=== PATIENT | male | born 1945 | race Caucasian/White ===

== ENCOUNTER 2019-04-07 09:55 | Inpatient (IN) | payer OTHER ==
[2019-04-07 10:18] VITALS: BMI 22.8
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
[2019-04-07] MEDS ORDERED: BISMUTH SUBSALICYLATE 524 MG/30 ML UD PO PRN (11:18)
[2019-04-07] MEDS ORDERED: ACETAMINOPHEN 325 MG TABLET (FP) PO PRN (11:18)
[2019-04-07] MEDS ORDERED: NICOTINE POLACRILEX 2 MG GUM BUC PRN (11:18)
[2019-04-07] MEDS ORDERED: MAGNESIUM HYDROX 2400MG/30ML ORAL SUSPENSION 30 ML CUP PO PRN (11:18)
[2019-04-07] MEDS ORDERED: cloNIDine HCL 0.1 MG TABLET PO PRN (11:18)
[2019-04-07] MEDS ORDERED: MAGNESIUM CITRATE 300 ML BOTTLE PO PRN (11:18)
[2019-04-07] MEDS ORDERED: MENTHOL/PHENOL 1 EACH UD MM PRN (11:18)
[2019-04-07] MEDS ORDERED: MAG HYDROX/AL HYDROX/SIMETH 30 ML UNIT-DOSE CUP PO PRN (11:18)
[2019-04-07] MEDS ORDERED: METHADONE HCL 10 MG TABLET (FOR DETOX USE ONLY) PO ONE (12:00)
[2019-04-07] MEDS: NICOTINE 21 MG/24 HOURS TOPICAL PATCH TD SCH (13:21)
[2019-04-07 19:47] LABS: URINE APPEARANCE CLEAR; URINE BILIRUBIN 1+ (NEGATIVE); URINE COLOR DK YELLOW; URINE GLUCOSE (UA) NEGATIVE (NEGATIVE); URINE KETONE TRACE (NEGATIVE); URINE LEUK ESTERASE NEGATIVE (NEGATIVE); URINE NITRITE NEGATIVE (NEGATIVE); URINE PROTEIN TRACE (NEGATIVE)
[2019-04-07] MEDS: MELATONIN 5 MG TABLETS PO PRN (22:39)
[2019-04-07] MEDS: THIAMINE HCL 100 MG TABLET (FP) PO SCH (22:39)
[2019-04-08] MEDS: clonazePAM 0.5 MG TABLET PO PRN ×3 (00:49→22:31)
[2019-04-08] MEDS ORDERED: METHADONE HCL 10 MG TABLET (FOR DETOX USE ONLY) ONE (09:49)
[2019-04-08] MEDS ORDERED: METHADONE HCL 5 MG TABLET (FOR DETOX USE ONLY) ONE (09:50)
[2019-04-08] MEDS ORDERED: METHADONE (DETOX) 20 MG, METHADONE (DETOX) 5 MG PO ONE (10:00)
[2019-04-08] MEDS: PRENATAL VITAMINS W/ FOLIC ACID TABLET (FP) PO SCH (10:25)
[2019-04-08] MEDS: NICOTINE 21 MG/24 HOURS TOPICAL PATCH TD SCH (10:25)
[2019-04-08 10:49] LABS: HEMATOCRIT 43.6 % (35.4-49); HEMOGLOBIN 14.3 GM/dL (11.7-16.9); MEAN PLT VOLUME 9.5 fl (7.5-11.1); WHITE BLOOD COUNT 5.8 K/mm3 (4.0-10.0)
[2019-04-08 10:54] LABS: ALBUMIN 3.3 g/dl (3.4-5.0); BILIRUBIN,TOTAL 0.9 mg/dL (0.2-1); BLOOD UREA NITROGEN 26.2 mg/dL (7-18); CALCIUM 8.6 mg/dL (8.5-10.1); CREATININE 1.2 mg/dL (0.55-1.3); POTASSIUM 4.1 mmol/L (3.5-5.1); TOT PROT 7.1 g/dl (6.4-8.2)
[2019-04-08 11:17] LABS: MCHC 32.8 g/dl (32.0-35.9); MEAN CELL VOLUME 94.6 fl (80-96); RBC 4.61 M/mm3 (4.00-5.60); RDW 13.5 % (11.9-15.9)
[2019-04-08 11:44] LABS: PLATELET COUNT 148 K/MM3 (134-434)
[2019-04-08] MEDS: AMMONIUM LACTATE 12% LOTION 225 GM BOTTLE TP SCH ×2 (12:11→22:28)
--- NOTE | 2019-04-08 13:59 | EKG ---
Test Reason : Blood Pressure : / mmHG Vent. Rate : 075 BPM Atrial Rate : 075 BPM P-R Int : 160 ms QRS Dur : 072 ms QT Int : 398 ms P-R-T Axes : 070 -07 024 degrees QTc Int : 444 ms NORMAL SINUS RHYTHM NORMAL ECG NO PREVIOUS ECGS AVAILABLE Confirmed by MD HARRISON, JOSHUA ([id number]) on 04/08/2019 1:58:55 PM Referred By: SONG FINCH Confirmed By:JOSHUA TERRY MD
--- NOTE | 2019-04-08 15:28 | PN ---
BHS COWS - Scale Resting Pulse: 1= [place] 81-100 Sweatin= No chills or Flushing Restless Observation: 1= Difficult to Sit Still Pupil Size: 0= Normal to Room Light Bone or Joint Aches: 2= Severe Diffuse Aches Runny Nose/ Eye Tearin= None GI Upset > 30mins: 0= None Tremor Observation of Outstretched Hands: 2= Slight Tremor Visible Yawning Observation: 1= 1-2x During Session Anxiety or Irritability: 2=Irritable/Anxious Goose Flesh Skin: 3=Piloerection COWS Score: 12 BHS Progress Note (SOAP) Subjective: Anxious, Tremors, Body Aches. Objective: PATIENT A & O X 3, OBSERVED AMBULATING ON UNIT UNASSISTED. IN NO ACUTE DISTRESS. 04/08/19 15:27 Vital Signs Temperature 97.2 F L 04/08/19 13:18 Pulse Rate 86 04/08/19 13:18 Respiratory Rate 17 04/08/19 13:18 Blood Pressure 104/66 04/08/19 13:18 O2 Sat by Pulse Oximetry (%) Laboratory Tests 04/07/19 04/08/19 04/08/19 12:56 07:42 07:42 WBC 5.8 RBC 4.61 Hgb 14.3 Hct 43.6 MCV 94.6 MCH 31.0 MCHC 32.8 RDW 13.5 Plt Count 148 MPV 9.5 Sodium 141 Potassium 4.1 Chloride 109 H Carbon Dioxide 28 Anion Gap 5 L BUN 26.2 H Creatinine 1.2 Est GFR (CKD-EPI)AfAm 70.09 Est GFR (CKD-EPI)NonAf 60.47 Random Glucose 82 Calcium 8.6 Total Bilirubin 0.9 AST 22 ALT 23 Alkaline Phosphatase 82 Total Protein 7.1 Albumin 3.3 L Urine Color Dk yellow Urine Appearance Clear Urine pH 5.0 Ur Specific [place] 1.033 Urine Protein Trace Urine Glucose (UA) Negative Urine Ketones Trace H Urine Blood Negative Urine Nitrite Negative Urine Bilirubin 1+ H Urine Urobilinogen 1.0 Ur Leukocyte Esterase Negative RPR Titer 04/08/19 07:42 WBC RBC Hgb Hct MCV MCH MCHC RDW Plt Count MPV Sodium Potassium Chloride Carbon Dioxide Anion Gap BUN Creatinine Est GFR (CKD-EPI)AfAm Est GFR (CKD-EPI)NonAf Random Glucose Calcium Total Bilirubin AST ALT Alkaline Phosphatase Total Protein Albumin Urine Color Urine Appearance Urine pH Ur Specific [place] Urine Protein Urine Glucose (UA) Urine Ketones Urine Blood Urine Nitrite Urine Bilirubin Urine Urobilinogen Ur Leukocyte Esterase RPR Titer Nonreactive LABS NOTED. RESULTS OF TB /QFT TEST PENDING. 04/08/19 15:28 Assessment: 04/08/19 15:28 WITHDRAWAL SYMPTOMS. Plan: CONTINUE DETOX. INCREASE DAILY PO WATER INTAKE.
[2019-04-08] MEDS: MELATONIN 5 MG TABLETS PO PRN (22:28)
[2019-04-08] MEDS: THIAMINE HCL 100 MG TABLET (FP) PO SCH (22:28)
[2019-04-09] MEDS: clonazePAM 0.5 MG TABLET PO PRN ×2 (06:20→22:31)
[2019-04-09] MEDS: IBUPROFEN 400 MG TABLET (FP) PO PRN (06:41)
[2019-04-09] MEDS ORDERED: METHADONE HCL 10 MG TABLET (FOR DETOX USE ONLY) PO ONE (10:00)
[2019-04-09] MEDS: METHOCARBAMOL 500 MG TABLET PO PRN (10:21)
[2019-04-09] MEDS: PRENATAL VITAMINS W/ FOLIC ACID TABLET (FP) PO SCH (10:21)
[2019-04-09] MEDS: AMMONIUM LACTATE 12% LOTION 225 GM BOTTLE TP SCH ×2 (10:22→22:31)
[2019-04-09] MEDS: NICOTINE 21 MG/24 HOURS TOPICAL PATCH TD SCH (10:22)
--- NOTE | 2019-04-09 14:18 | PN ---
BHS COWS - Scale Resting Pulse: 1= [place] 81-100 Sweatin= No chills or Flushing Restless Observation: 1= Difficult to Sit Still Pupil Size: 0= Normal to Room Light Bone or Joint Aches: 4=Acute Joint/Muscle Pain Runny Nose/ Eye Tearin= None GI Upset > 30mins: 0= None Tremor Observation of Outstretched Hands: 0= None Yawning Observation: 1= 1-2x During Session Anxiety or Irritability: 2=Irritable/Anxious Goose Flesh Skin: 0=Smooth Skin COWS Score: 9 BHS Progress Note (SOAP) Subjective: Interrupted Sleep, Anxious, Body Aches. Objective: PATIENT A & O X 3, OBSERVED AMBULATING ON UNIT UNASSISTED. IN NO ACUTE DISTRESS. 04/09/19 14:17 Vital Signs Temperature 98.3 F 04/09/19 09:29 Pulse Rate 88 04/09/19 09:29 Respiratory Rate 18 04/09/19 09:29 Blood Pressure 118/73 04/09/19 09:29 O2 Sat by Pulse Oximetry (%) Laboratory Tests 04/07/19 04/08/19 04/08/19 12:56 07:42 07:42 WBC 5.8 RBC 4.61 Hgb 14.3 Hct 43.6 MCV 94.6 MCH 31.0 MCHC 32.8 RDW 13.5 Plt Count 148 MPV 9.5 Sodium 141 Potassium 4.1 Chloride 109 H Carbon Dioxide 28 Anion Gap 5 L BUN 26.2 H Creatinine 1.2 Est GFR (CKD-EPI)AfAm 70.09 Est GFR (CKD-EPI)NonAf 60.47 Random Glucose 82 Calcium 8.6 Total Bilirubin 0.9 AST 22 ALT 23 Alkaline Phosphatase 82 Total Protein 7.1 Albumin 3.3 L Urine Color Dk yellow Urine Appearance Clear Urine pH 5.0 Ur Specific [place] 1.033 Urine Protein Trace Urine Glucose (UA) Negative Urine Ketones Trace H Urine Blood Negative Urine Nitrite Negative Urine Bilirubin 1+ H Urine Urobilinogen 1.0 Ur Leukocyte Esterase Negative RPR Titer 04/08/19 07:42 WBC RBC Hgb Hct MCV MCH MCHC RDW Plt Count MPV Sodium Potassium Chloride Carbon Dioxide Anion Gap BUN Creatinine Est GFR (CKD-EPI)AfAm Est GFR (CKD-EPI)NonAf Random Glucose Calcium Total Bilirubin AST ALT Alkaline Phosphatase Total Protein Albumin Urine Color Urine Appearance Urine pH Ur Specific [place] Urine Protein Urine Glucose (UA) Urine Ketones Urine Blood Urine Nitrite Urine Bilirubin Urine Urobilinogen Ur Leukocyte Esterase RPR Titer Nonreactive LABS NOTED. RESULTS OF TB /QFT TEST PENDING. 04/09/19 14:18 Assessment: 04/09/19 14:17 WITHDRAWAL SYMPTOMS. Plan: CONTINUE DETOX. INCREASE DAILY PO WATER INTAKE.
[2019-04-09] MEDS: LIDOCAINE 5% TOPICAL PATCH TP SCH (15:14)
[2019-04-09] MEDS: THIAMINE HCL 100 MG TABLET (FP) PO SCH (22:30)
[2019-04-09] MEDS: LIDOCAINE PATCH REMOVAL MC SCH (22:30)
[2019-04-09] MEDS: MELATONIN 5 MG TABLETS PO PRN (22:31)
[2019-04-10] MEDS ORDERED: METHADONE HCL 5 MG TABLET (FOR DETOX USE ONLY) ONE (08:54)
[2019-04-10] MEDS ORDERED: METHADONE HCL 10 MG TABLET (FOR DETOX USE ONLY) ONE (08:54)
[2019-04-10] MEDS: PRENATAL VITAMINS W/ FOLIC ACID TABLET (FP) PO SCH (09:41)
[2019-04-10] MEDS: AMMONIUM LACTATE 12% LOTION 225 GM BOTTLE TP SCH ×2 (09:41→22:27)
[2019-04-10] MEDS: NICOTINE 21 MG/24 HOURS TOPICAL PATCH TD SCH (09:41)
[2019-04-10] MEDS: LIDOCAINE 5% TOPICAL PATCH TP SCH (09:42)
[2019-04-10] MEDS: METHOCARBAMOL 500 MG TABLET PO PRN (09:45)
[2019-04-10] MEDS ORDERED: METHADONE (DETOX) 10 MG, METHADONE (DETOX) 5 MG PO ONE (10:00)
--- NOTE | 2019-04-10 12:17 | PN ---
BHS COWS - Scale Resting Pulse: 1= [place] 81-100 Sweatin= No chills or Flushing Restless Observation: 1= Difficult to Sit Still Pupil Size: 1= Pupils >than Normal Bone or Joint Aches: 1= Mild Discomfort Runny Nose/ Eye Tearin= Nasal Congestion GI Upset > 30mins: 1= Stomach Cramp Tremor Observation of Outstretched Hands: 1= Tremor [place], Not Seen Yawning Observation: 0= None Anxiety or Irritability: 1=Feels Anxious/Irritable Goose Flesh Skin: 0=Smooth Skin COWS Score: 8 BHS Progress Note (SOAP) Subjective: alert,irritable,anxious,interrupted sleep,aching pain Objective: 04/10/19 12:16 Vital Signs Temperature 97.5 F L 04/10/19 09:35 Pulse Rate 84 04/10/19 09:35 Respiratory Rate 18 04/10/19 09:35 Blood Pressure 126/79 04/10/19 09:35 O2 Sat by Pulse Oximetry (%) Assessment: 04/10/19 12:16 withdrawal symptom Plan: continue detox,methadone regimen
[2019-04-10] MEDS: THIAMINE HCL 100 MG TABLET (FP) PO SCH (21:13)
[2019-04-10] MEDS: clonazePAM 0.5 MG TABLET PO PRN (21:14)
[2019-04-10] MEDS: IBUPROFEN 400 MG TABLET (FP) PO PRN (21:14)
[2019-04-10] MEDS: MELATONIN 5 MG TABLETS PO PRN (21:14)
[2019-04-10] MEDS: LIDOCAINE PATCH REMOVAL MC SCH (22:28)
[2019-04-11] MEDS ORDERED: METHADONE HCL 10 MG TABLET (FOR DETOX USE ONLY) PO ONE (10:00)
[2019-04-11] MEDS: LIDOCAINE 5% TOPICAL PATCH TP SCH (10:06)
[2019-04-11] MEDS: AMMONIUM LACTATE 12% LOTION 225 GM BOTTLE TP SCH ×2 (10:06→22:05)
[2019-04-11] MEDS: NICOTINE 21 MG/24 HOURS TOPICAL PATCH TD SCH (10:06)
[2019-04-11] MEDS: PRENATAL VITAMINS W/ FOLIC ACID TABLET (FP) PO SCH (10:07)
--- NOTE | 2019-04-11 10:59 | PN ---
BHS COWS - Scale Resting Pulse: 1= [place] 81-100 Sweatin= Chills/Flushing Restless Observation: 0= Sits Still Pupil Size: 0= Normal to Room Light Bone or Joint Aches: 1= Mild Discomfort Runny Nose/ Eye Tearin= None GI Upset > 30mins: 0= None Tremor Observation of Outstretched Hands: 0= None Yawning Observation: 0= None Anxiety or Irritability: 0= None Goose Flesh Skin: 0=Smooth Skin COWS Score: 3 BHS Progress Note (SOAP) Subjective: feeling better little anxiety Objective: 04/11/19 10:58 Vital Signs Temperature 97.5 F L 04/11/19 09:28 Pulse Rate 83 04/11/19 09:28 Respiratory Rate 18 04/11/19 09:28 Blood Pressure 124/78 04/11/19 09:28 O2 Sat by Pulse Oximetry (%) [id number] ambulating no acute distress Assessment: 04/11/19 10:58 mild withdrawal sx Plan: continue detox increase fluids d/c in am
[2019-04-11] MEDS: LIDOCAINE PATCH REMOVAL MC SCH (22:05)
[2019-04-11] MEDS: THIAMINE HCL 100 MG TABLET (FP) PO SCH (22:06)
[2019-04-11] MEDS: METHOCARBAMOL 500 MG TABLET PO PRN (22:07)
[2019-04-12] MEDS: MELATONIN 5 MG TABLETS PO PRN (00:49)
[2019-04-12] MEDS: clonazePAM 0.5 MG TABLET PO PRN (03:35)
[2019-04-12] MEDS ORDERED: METHADONE HCL 5 MG TABLET (FOR DETOX USE ONLY) PO ONE (06:00)
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
[2019-04-12] MEDS: AMMONIUM LACTATE 12% LOTION 225 GM BOTTLE TP SCH (12:50)
[2019-04-12] MEDS: LIDOCAINE 5% TOPICAL PATCH TP SCH (12:50)
[2019-04-12] MEDS: PRENATAL VITAMINS W/ FOLIC ACID TABLET (FP) PO SCH (12:50)
[2019-04-12] MEDS: NICOTINE 21 MG/24 HOURS TOPICAL PATCH TD SCH (12:50)
[2019-04-12 13:45] VITALS: BP 113/70; PULSE 76; TEMP 97.7
== END 2019-04-12 14:16 | disposition home or self-care (01) | DRG 897 ==
LOC: YASAS 09:55 → Y6N 11:44
PROVIDERS: ADMIT Surgery; ATTEND Surgery
PROC: HZ2ZZZZ Detoxification Services for Substance Abuse Treatment (ICD-10-PCS; principal; 2019-04-07)
DX: F11.23 Opioid dependence with withdrawal (principal); F17.290 Nicotine dependence, other tobacco product, uncomplicated; M51.36 Other intervertebral disc degeneration, lumbar region; N40.1 Benign prostatic hyperplasia with lower urinary tract symptoms; R35.1 Nocturia; M79.5 Residual foreign body in soft tissue; Z85.528 Personal history of other malignant neoplasm of kidney; Z86.19 Personal history of other infectious and parasitic diseases
CPT/HCPCS: 36415; 71046-TC-FY; 80053; 81003; 85027; 86480; 86593; 93005; 93010

== ENCOUNTER 2023-03-19 11:06 | Inpatient (IN) | payer OTHER ==
[2023-03-19 12:09] VITALS: BMI 23.9
[2023-03-19] MEDS ORDERED: ACETAMINOPHEN 325 MG TABLET (FP) PO PRN (13:26)
[2023-03-19] MEDS ORDERED: BENZOCAINE/MENTHOL (CHLORASEPTIC ) LOZENGE MM PRN (13:26)
[2023-03-19] MEDS ORDERED: NICOTINE POLACRILEX 4 MG GUM BUC PRN (13:26)
[2023-03-19] MEDS ORDERED: MAGNESIUM HYDROX 2400MG/30ML ORAL SUSPENSION 30 ML CUP PO PRN (13:26)
[2023-03-19] MEDS ORDERED: IBUPROFEN 400 MG TABLET (FP) PO PRN (13:26)
[2023-03-19] MEDS ORDERED: ONDANSETRON *ODT* 4 MG TABLET SL PRN (13:26)
[2023-03-19] MEDS ORDERED: BENZONATATE 200 MG CAPSULE PO PRN (13:26)
[2023-03-19] MEDS ORDERED: MAG HYDROX/AL HYDROX/SIMETH 30 ML UNIT-DOSE CUP PO PRN (13:26)
[2023-03-19] MEDS ORDERED: NALOXONE HCL 0.4 MG/ML VIAL IM PRN (13:26)
[2023-03-19] MEDS ORDERED: methaDONE HCL 10 MG TABLET (FOR DETOX USE ONLY) PO ONE (13:26)
[2023-03-19] MEDS ORDERED: LOPERAMIDE HCL 2 MG CAPSULE PO PRN (13:26)
[2023-03-19] MEDS ORDERED: NALOXONE HCL (KLOXXADO) 8 MG SPRAY NS PRN (13:26)
[2023-03-19] MEDS ORDERED: BISMUTH SUBSALICYLATE 524 MG/30 ML PO PRN (13:26)
[2023-03-19] MEDS ORDERED: POLYETHYLENE GLYCOL (HEALTHYLAX) 3350 17 GM PACKET PO PRN (13:26)
[2023-03-19] MEDS ORDERED: guaiFENesin 600 MG TABLET.ER (FP) PO PRN (13:26)
[2023-03-19] MEDS ORDERED: methaDONE HCL 10 MG TABLET (FOR DETOX USE ONLY) ONE (14:22)
[2023-03-19] MEDS: cloNIDine HCL 0.1 MG TABLET PO PRN (17:39)
[2023-03-19] MEDS: METHOCARBAMOL 500 MG TABLET PO PRN (22:21)
[2023-03-19] MEDS: THIAMINE HCL 100 MG TABLET (FP) PO SCH (22:21)
[2023-03-19] MEDS: MELATONIN 5 MG TABLETS PO SCH (22:21)
[2023-03-20 10:14] LABS: POTASSIUM 5.3 mmol/L (3.5-5.1)
[2023-03-20 10:18] LABS: HEMATOCRIT 43.1 % (35.4-49); MCH 30.4 pg (25.7-33.7); MCHC 32.6 g/dl (32.0-35.9); MEAN CELL VOLUME 93.4 fl (80-96); PLATELET COUNT 212 10^3/uL (134-434); RBC 4.61 M/mm3 (4.00-5.60); WHITE BLOOD COUNT 6.5 K/mm3 (4.0-10.0)
[2023-03-20] MEDS: PRENATAL VITAMINS W/ FOLIC ACID TABLET (FP) PO SCH (10:18)
[2023-03-20 10:19] LABS: CALCIUM 9.1 mg/dL (8.5-10.1)
[2023-03-20 10:20] LABS: ALBUMIN 3.1 g/dl (3.4-5.0); BLOOD UREA NITROGEN 18.2 mg/dL (7-18)
[2023-03-20 10:24] LABS: BILIRUBIN,TOTAL 0.5 mg/dL (0.2-1); CREATININE 1.3 mg/dL (0.55-1.3); TOT PROT 7.5 g/dl (6.4-8.2)
[2023-03-20] MEDS ORDERED: SODIUM POLYSTYRENE SULFONATE 15 GM/60 ML BOTTLE PO ONE (15:24)
[2023-03-20] MEDS ORDERED: PENICILLIN G BENZATHINE 2,400,000 UNIT/4 ML PFS IM ONE ×2 (16:15→18:00)
[2023-03-20] MEDS: hydrOXYzine PAMOATE 25 MG CAPSULE (FP) PO PRN (18:10)
[2023-03-20] MEDS: METHOCARBAMOL 500 MG TABLET PO PRN (18:10)
[2023-03-20] MEDS: DICYCLOMINE HCL 10 MG CAPSULE PO PRN (18:10)
[2023-03-20] MEDS: THIAMINE HCL 100 MG TABLET (FP) PO SCH (22:26)
[2023-03-20] MEDS: MELATONIN 5 MG TABLETS PO SCH (22:26)
[2023-03-21] MEDS: IBUPROFEN 600 MG TABLET (FP) PO PRN ×2 (05:02→20:55)
[2023-03-21] MEDS: hydrOXYzine PAMOATE 25 MG CAPSULE (FP) PO PRN (05:02)
[2023-03-21] MEDS: METHOCARBAMOL 500 MG TABLET PO PRN (05:02)
[2023-03-21] MEDS: cloNIDine HCL 0.1 MG TABLET PO PRN ×2 (05:02→20:56)
[2023-03-21] MEDS ORDERED: methaDONE HCL 10 MG TABLET (FOR DETOX USE ONLY) PO ONE (10:00)
[2023-03-21] MEDS: PRENATAL VITAMINS W/ FOLIC ACID TABLET (FP) PO SCH (10:29)
[2023-03-21 12:17] LABS: HIV INTERPRETATION NEGATIVE (NEGATIVE)
[2023-03-21] MEDS: MELATONIN 5 MG TABLETS PO SCH (22:00)
[2023-03-21] MEDS: THIAMINE HCL 100 MG TABLET (FP) PO SCH (22:00)
[2023-03-22] MEDS: DICYCLOMINE HCL 10 MG CAPSULE PO PRN ×2 (03:57→10:33)
[2023-03-22] MEDS: METHOCARBAMOL 500 MG TABLET PO PRN (03:57)
[2023-03-22] MEDS: hydrOXYzine PAMOATE 25 MG CAPSULE (FP) PO PRN (03:57)
[2023-03-22 09:28] VITALS: BP 114/65; PULSE 72; RESP 16; TEMP 97.6
[2023-03-22] MEDS: PRENATAL VITAMINS W/ FOLIC ACID TABLET (FP) PO SCH (10:35)
[2023-03-23] MEDS ORDERED: methaDONE HCL 10 MG TABLET (FOR DETOX USE ONLY) PO ONE (10:00)
== END 2023-03-22 10:35 | disposition left against medical advice (07) | DRG 894 ==
LOC: YASAS 11:06 → Y3N 14:53
PROVIDERS: ADMIT Allergy & Immunology; ATTEND Surgery
PROC: HZ2ZZZZ Detoxification Services for Substance Abuse Treatment (ICD-10-PCS; principal; 2023-03-19)
DX: F11.23 Opioid dependence with withdrawal (principal); F14.20 Cocaine dependence, uncomplicated; F17.290 Nicotine dependence, other tobacco product, uncomplicated; E87.5 Hyperkalemia; M51.36 Other intervertebral disc degeneration, lumbar region; M79.5 Residual foreign body in soft tissue; N40.1 Benign prostatic hyperplasia with lower urinary tract symptoms; R35.0 Frequency of micturition; Z85.528 Personal history of other malignant neoplasm of kidney; Z86.11 Personal history of tuberculosis
CPT/HCPCS: 36415; 80053; 84132; 85027; 86593; 86780; 87389; 87635

== ENCOUNTER 2023-08-19 17:19 | Inpatient (IN) | payer OTHER ==
[2023-08-19 19:25] VITALS: BMI 23.6
[2023-08-19] MEDS ORDERED: guaiFENesin 600 MG TABLET.ER (FP) PO PRN (20:56)
[2023-08-19] MEDS ORDERED: NALOXONE HCL 0.4 MG/ML VIAL IM PRN (20:56)
[2023-08-19] MEDS ORDERED: MAGNESIUM HYDROX 2400MG/30ML ORAL SUSPENSION 30 ML CUP PO PRN (20:56)
[2023-08-19] MEDS ORDERED: NICOTINE POLACRILEX 2 MG GUM BUC PRN (20:56)
[2023-08-19] MEDS ORDERED: LOPERAMIDE HCL 2 MG CAPSULE PO PRN (20:56)
[2023-08-19] MEDS ORDERED: MAG HYDROX/AL HYDROX/SIMETH 30 ML UNIT-DOSE CUP PO PRN (20:56)
[2023-08-19] MEDS ORDERED: ONDANSETRON *ODT* 4 MG TABLET SL PRN (20:56)
[2023-08-19] MEDS ORDERED: ACETAMINOPHEN 325 MG TABLET (FP) PO PRN (20:56)
[2023-08-19] MEDS ORDERED: BISMUTH SUBSALICYLATE 524 MG/30 ML PO PRN (20:56)
[2023-08-19] MEDS ORDERED: POLYETHYLENE GLYCOL (HEALTHYLAX) 3350 17 GM PACKET PO PRN (20:56)
[2023-08-19] MEDS ORDERED: BENZOCAINE/MENTHOL (CHLORASEPTIC ) LOZENGE MM PRN (20:56)
[2023-08-19] MEDS ORDERED: NALOXONE HCL (KLOXXADO) 8 MG SPRAY NS PRN (20:56)
[2023-08-19] MEDS ORDERED: IBUPROFEN 400 MG TABLET (FP) PO PRN (20:56)
[2023-08-19] MEDS ORDERED: BENZONATATE 200 MG CAPSULE PO PRN (20:56)
[2023-08-19] MEDS ORDERED: methaDONE HCL 10 MG TABLET (FOR DETOX USE ONLY) PO ONE (21:01)
[2023-08-19] MEDS ORDERED: methaDONE HCL 10 MG TABLET (FOR DETOX USE ONLY) ONE (21:38)
[2023-08-19] MEDS ORDERED: MELATONIN 5 MG TABLETS PO SCH (22:00)
[2023-08-19] MEDS: THIAMINE HCL 100 MG TABLET (FP) PO SCH (22:41)
[2023-08-19] MEDS: IBUPROFEN 600 MG TABLET (FP) PO PRN (22:43)
[2023-08-19] MEDS: cloNIDine HCL 0.1 MG TABLET PO PRN (22:44)
[2023-08-20 09:08] LABS: HEMOGLOBIN 15.1 GM/dL (11.7-16.9); MCH 30.5 pg (25.7-33.7); MCHC 33.6 g/dl (32.0-35.9); MEAN CELL VOLUME 90.8 fl (80-96); MEAN PLT VOLUME 8.8 fl (7.5-11.1); PLATELET COUNT 206 10^3/uL (134-434); RBC 4.96 M/mm3 (4.00-5.60); RDW 14.2 % (11.9-15.9); WHITE BLOOD COUNT 6.8 K/mm3 (4.0-10.0)
[2023-08-20 09:11] LABS: CHLORIDE 106 mmol/L (98-107); SODIUM 140 mmol/L (136-145)
[2023-08-20 09:23] LABS: ALK PHOS 96 U/L (45-117)
[2023-08-20 09:24] LABS: ANION GAP 5 mmol/L (4-13); CO2 28 mmol/L (21-32)
[2023-08-20 09:32] LABS: ALBUMIN 3.5 g/dl (3.4-5.0)
[2023-08-20 09:34] LABS: CREATININE 1.5 mg/dL (0.55-1.3); GLUCOSE,RANDOM 86 mg/dL (74-106)
[2023-08-20 09:35] LABS: CALCIUM 8.9 mg/dL (8.5-10.1)
[2023-08-20 09:36] LABS: BLOOD UREA NITROGEN 24.2 mg/dL (7-18); SGOT/AST 18 U/L (15-37); TOT PROT 8.1 g/dl (6.4-8.2)
[2023-08-20 09:38] LABS: BILIRUBIN,TOTAL 0.8 mg/dL (0.2-1)
[2023-08-20 09:39] LABS: SGPT/ALT 16 U/L (13-61)
[2023-08-20] MEDS: PRENATAL VITAMINS W/ FOLIC ACID TABLET (FP) PO SCH (10:19)
[2023-08-20] MEDS: IBUPROFEN 600 MG TABLET (FP) PO PRN (16:26)
[2023-08-20] MEDS: MELATONIN 5 MG TABLETS PO SCH (21:32)
[2023-08-20] MEDS: THIAMINE HCL 100 MG TABLET (FP) PO SCH (21:33)
[2023-08-21] MEDS: cloNIDine HCL 0.1 MG TABLET PO PRN ×3 (00:48→21:27)
[2023-08-21] MEDS ORDERED: methaDONE HCL 10 MG TABLET (FOR DETOX USE ONLY) PO ONE (10:00)
[2023-08-21] MEDS: PRENATAL VITAMINS W/ FOLIC ACID TABLET (FP) PO SCH (10:19)
[2023-08-21] MEDS: IBUPROFEN 600 MG TABLET (FP) PO PRN (10:19)
[2023-08-21] MEDS: MELATONIN 5 MG TABLETS PO SCH (21:27)
[2023-08-21] MEDS: THIAMINE HCL 100 MG TABLET (FP) PO SCH (21:27)
[2023-08-22] MEDS: PRENATAL VITAMINS W/ FOLIC ACID TABLET (FP) PO SCH (09:53)
[2023-08-22] MEDS ORDERED: TRIMETHOBENZAMIDE HCL 200MG/2ML INJ IM ONE (19:35)
[2023-08-22] MEDS: THIAMINE HCL 100 MG TABLET (FP) PO SCH (23:05)
[2023-08-22] MEDS: MELATONIN 5 MG TABLETS PO SCH (23:05)
[2023-08-23 06:07] VITALS: TEMP 98.5
[2023-08-23] MEDS: PRENATAL VITAMINS W/ FOLIC ACID TABLET (FP) PO SCH (09:28)
[2023-08-23 09:31] VITALS: BP 114/71; PULSE 66; RESP 16
[2023-08-23] MEDS ORDERED: methaDONE HCL 10 MG TABLET (FOR DETOX USE ONLY) PO ONE (10:00)
== END 2023-08-23 12:05 | disposition home or self-care (01) | DRG 897 ==
LOC: YASAS 17:19 → Y3N 21:39
PROVIDERS: ADMIT Allergy & Immunology; ATTEND Surgery
PROC: HZ2ZZZZ Detoxification Services for Substance Abuse Treatment (ICD-10-PCS; principal; 2023-08-19)
DX: F11.23 Opioid dependence with withdrawal (principal); F17.210 Nicotine dependence, cigarettes, uncomplicated; N40.1 Benign prostatic hyperplasia with lower urinary tract symptoms; R35.0 Frequency of micturition; R76.8 Other specified abnormal immunological findings in serum; Z85.528 Personal history of other malignant neoplasm of kidney
CPT/HCPCS: 36415; 71046-TC-FY; 80053; 80307; 85027; 86593; 86780; 87635; 93005; 93010